=== PATIENT | male | born 1975 | race Caucasian/White ===

== ENCOUNTER 2016-11-17 02:20 | Emergency (ER) | payer OTHER ==
[~2016-11-17 02:20] MED LIST: PERCOCET1 TA1 PO; VISTARIL50 MG PO
--- NOTE | 2016-11-17 04:29 | ED ORDER SUMMARY ---
..... Patient: JANNETTE RIZVI OrderSheet [facility] VisitID: [id number] [place] [address] 41y, M Registration Date/Time: 11/17/2016 ORDER SHEET Weight: 108.8 kg (stated) Allergies: No Known Drug Allergy GENERAL ORDERS: Culture, Wound Deep (Groin) (pus) Urgent (03:00 11/17/2016 Brandon Mcdaniel) (Ack 3:01 PWeiler ER Tech1) (4:14 HSoule) CBC w Diff Urgent (03:00 11/17/2016 Brandon Mcdaniel) (Ack 3:01 KRISTIeiler ER Tech1) (3:47 Marita R.N.) CMP Urgent (03:00 11/17/2016 Brandon Mcdaniel) (Ack 3:01 KRISTIeiler ER Tech1) (3:47 Marita R.N.) I&D Tray (03:00 11/17/2016 Brandon Mcdaniel) (Ack 3:01 KRISTIeiler ER Tech1) (3:09 ALawrence ER Tech1) MEDICATION ORDERS: IV FLUIDS: IV NS : initial bolus none -, then 1000 mL/hr (NOW) (02:59 11/17/2016 Brandon Mcdaniel) (Ack 3:06 HSoule) (3:18 HSoule) Dilaudid IV 1 mg (HIGH ALERT MEDICATION, NOW) (03:00 11/17/2016 Brandon Mcdaniel) (Ack 3:06 HSoule) (3:20 HSoule) Dilaudid IV 1 mg (NOW) (03:59 11/17/2016 Marita R.N. verbal order read back to Brandon Mcdaniel) (4:00 Marita R.N.) ORDER SHEET NOTES: [Electronically signed by Lon Alicia Dr. (04:31 11/17/2016)] [Electronically signed by Janice Grey (05:22 11/17/2016)] [Electronically locked/signed by Janice Grey (05:22 11/17/2016)]
--- NOTE | 2016-11-17 04:29 | ED ORDER SUMMARY ---
..... Patient: JANNETTE RIZVI OrderSheet [facility] VisitID: [id number] [place] [address] 41y, M Registration Date/Time: 11/17/2016 ORDER SHEET Weight: 108.8 kg (stated) Allergies: No Known Drug Allergy GENERAL ORDERS: Culture, Wound Deep (Groin) (pus) Urgent (03:00 11/17/2016 Brandon Mcdaniel) (Ack 3:01 PWeiler ER Tech1) (4:14 HSoule) CBC w Diff Urgent (03:00 11/17/2016 Brandon Mcdaniel) (Ack 3:01 KRISTIeiler ER Tech1) (3:47 Marita R.N.) CMP Urgent (03:00 11/17/2016 Brandon Mcdaniel) (Ack 3:01 KRISTIeiler ER Tech1) (3:47 Marita R.N.) I&D Tray (03:00 11/17/2016 Brandon Mcdaniel) (Ack 3:01 KRISTIeiler ER Tech1) (3:09 ALawrence ER Tech1) MEDICATION ORDERS: IV FLUIDS: IV NS : initial bolus none -, then 1000 mL/hr (NOW) (02:59 11/17/2016 Brandon Mcdaniel) (Ack 3:06 HSoule) (3:18 HSoule) Dilaudid IV 1 mg (HIGH ALERT MEDICATION, NOW) (03:00 11/17/2016 Brandon Mcdaniel) (Ack 3:06 HSoule) (3:20 HSoule) Dilaudid IV 1 mg (NOW) (03:59 11/17/2016 Marita R.N. verbal order read back to Brandon Mcdaniel) (4:00 Marita R.N.) ORDER SHEET NOTES: [Electronically signed by Lon Alicia Dr. (04:31 11/17/2016)] [Electronically signed by Janice Grey (05:22 11/17/2016)] [Electronically locked/signed by Janice Grey (05:22 11/17/2016)]
--- NOTE | 2016-11-17 04:29 | ED CLINICAL REPORT ---
Clinical Report - Physicians/Mid Levels [facility] [address] [place] [address] 11/17/2016 2:21 Patient: JANNETTE RIZVI Time Seen: 02:31; initial patient contact. Arrived- By private vehicle. Historian- patient. HISTORY OF PRESENT ILLNESS Chief Complaint: BOIL. This started about 5 days ago and is still present and worsening. It was gradual in onset. It is described as painful. It has been located on the abdomen (Lower central). No cause has been identified. No recent insect bite. Similar symptoms previously: Several times. Recent medical care: Not recently seen/assessed. REVIEW OF SYSTEMS No fever, chills, enlarged lymph nodes, nausea or vomiting. All systems otherwise negative, except as recorded above. PAST HISTORY Abscess. Back Pain. Hypertension. SURGERIES: Bicept tendon. Tibial platoue fx. SOCIAL HISTORY Current every day smoker. Occasional alcohol use. No drug use. ADDITIONAL NOTES The nursing notes have been reviewed. PHYSICAL EXAM Vital Signs: 11/17/2016 02:33 BP: 163/96. HR: 85. RR: 20. O2 saturation: 99%. Temp: 98.5 F. Pain level now: 7/10. Have been reviewed. Hypertensive. Heart rate normal. Respiratory rate normal. Temperature normal. Oxygen saturation normal. Appearance: Alert. Oriented X3. No acute distress. ENT: Pharynx normal. CVS: Normal heart rate and rhythm. Heart sounds normal. Respiratory: No respiratory distress. Breath sounds normal. Skin: Single medium tender indurated area with fluctuance, pointing and cellulitis to the abdomen. Neuro: Oriented X 3. PROGRESS AND PROCEDURES Incision & Drainage of Abscess: Time: 04:27. Per protocol, time-out completed immediately before the procedure. The abscess is located in the abdomen. The risks of the procedure, benefits and alternatives were explained. IV established. O2 administered. Placed on pulse oximeter. Parenteral Dilaudid administered. Local anesthesia provided using 1% lidocaine. Skin cleansed with Shur-Clens. The abscess was incised with a #11 surgical blade. A small amount of pus was drained. Cavity was irrigated with saline and packed with gauze. Sample obtained for cultures. A dressing was applied. Estimated blood loss: 5 mL. Disposition: Discharged home in good and improved condition. Condition: good. CLINICAL IMPRESSION Single deep abscess to the left inguinal region with incision and drainage. INSTRUCTIONS Your Current Medications: CONTINUE TAKING THE FOLLOWING MEDICATIONS: Chantix Oral. Losartan Potassium Oral. Zoloft Oral. Prescription Medications: Hydrocodone/APAP 5mg / 325mg: take 1 orally every 6 hours as needed for pain. Dispense fifteen (15). No refill. Clindamycin 300 mg: take 1 capsule orally every 6 hours for 7 days. No refill. Follow-up: Return to the emergency department in two days for wound check and packing removal. Blood pressure screening was not performed during this visit because the patient has an active diagnosis of hypertension. (Electronically signed by Lon Alicia Dr. 11/17/2016 4:31)
--- NOTE | 2016-11-17 04:29 | ED CLINICAL REPORT ---
Clinical Report - Physicians/Mid Levels [facility] [address] [place] [address] 11/17/2016 2:21 Patient: JANNETTE RIZVI Time Seen: 02:31; initial patient contact. Arrived- By private vehicle. Historian- patient. HISTORY OF PRESENT ILLNESS Chief Complaint: BOIL. This started about 5 days ago and is still present and worsening. It was gradual in onset. It is described as painful. It has been located on the abdomen (Lower central). No cause has been identified. No recent insect bite. Similar symptoms previously: Several times. Recent medical care: Not recently seen/assessed. REVIEW OF SYSTEMS No fever, chills, enlarged lymph nodes, nausea or vomiting. All systems otherwise negative, except as recorded above. PAST HISTORY Abscess. Back Pain. Hypertension. SURGERIES: Bicept tendon. Tibial platoue fx. SOCIAL HISTORY Current every day smoker. Occasional alcohol use. No drug use. ADDITIONAL NOTES The nursing notes have been reviewed. PHYSICAL EXAM Vital Signs: 11/17/2016 02:33 BP: 163/96. HR: 85. RR: 20. O2 saturation: 99%. Temp: 98.5 F. Pain level now: 7/10. Have been reviewed. Hypertensive. Heart rate normal. Respiratory rate normal. Temperature normal. Oxygen saturation normal. Appearance: Alert. Oriented X3. No acute distress. ENT: Pharynx normal. CVS: Normal heart rate and rhythm. Heart sounds normal. Respiratory: No respiratory distress. Breath sounds normal. Skin: Single medium tender indurated area with fluctuance, pointing and cellulitis to the abdomen. Neuro: Oriented X 3. PROGRESS AND PROCEDURES Incision & Drainage of Abscess: Time: 04:27. Per protocol, time-out completed immediately before the procedure. The abscess is located in the abdomen. The risks of the procedure, benefits and alternatives were explained. IV established. O2 administered. Placed on pulse oximeter. Parenteral Dilaudid administered. Local anesthesia provided using 1% lidocaine. Skin cleansed with Shur-Clens. The abscess was incised with a #11 surgical blade. A small amount of pus was drained. Cavity was irrigated with saline and packed with gauze. Sample obtained for cultures. A dressing was applied. Estimated blood loss: 5 mL. Disposition: Discharged home in good and improved condition. Condition: good. CLINICAL IMPRESSION Single deep abscess to the left inguinal region with incision and drainage. INSTRUCTIONS Your Current Medications: CONTINUE TAKING THE FOLLOWING MEDICATIONS: Chantix Oral. Losartan Potassium Oral. Zoloft Oral. Prescription Medications: Hydrocodone/APAP 5mg / 325mg: take 1 orally every 6 hours as needed for pain. Dispense fifteen (15). No refill. Clindamycin 300 mg: take 1 capsule orally every 6 hours for 7 days. No refill. Follow-up: Return to the emergency department in two days for wound check and packing removal. Blood pressure screening was not performed during this visit because the patient has an active diagnosis of hypertension. (Electronically signed by Lon Alicia Dr. 11/17/2016 4:31)
--- NOTE | 2016-11-17 04:29 | ED NURSING NOTES ---
Clinical Report - Nurses [facility] [address] [place] [address] 11/17/2016 2:21 [id number] Triage time 02:Nov 17 2016. Acuity: LEVEL 4. Chief Complaint: BOIL. 02:37 11/17/16. SEPSIS SCREEN: Sepsis Screen: negative. Negative (no infection suspected/documented). EFREN COMA SCORE: [place] Coma Scale: 15- eyes open spontaneously (4); best verbal response- oriented x 4 (5); best motor response- obeys commands (6). --02:37 Matilda, Janice 02:33 11/17/16. BP: 163/96. HR: 85. RR: 20. O2 saturation: 99% on room air. Temp: 98.5 F (oral). Pain level now: 01/29. --02:37 Matilda, Janice. Weight: 108.8 kg stated. Height/Length: 71 inches Per Patient. BMI: 33.5. --02:35 Matilda, Janice. Medications Chantix Oral. --02:34 Matilda, Janice Zoloft Oral. --02:35 Cora Greyh Losartan Potassium Oral. --02:35 Leif Greynah. Medication/allergy information source: the patient. --02:37 MatildaJanice hearn. Allergies No Known Drug Allergy. --02:35 Janice Grey. History Arrived by private vehicle. Historian: patient. Accompanied by family. Primary physician ( physician hitesh). Reported as (Groin). Onset. (5 days). It is described as burning and painful. ( Patient reports a boil/abscess above his penis at the top of his groin area. He reports its been going on five days. He reports history of MRSA. He reports some very scant drainage from the abscess.). PAST MEDICAL HX: Immunizations: up-to-date. SOCIAL HX: Light tobacco smoker (cigarette)- less than 1/2 a pack per day. Occasional alcohol use. No drug use. No infectious disease exposure. ABUSE ASSESSMENT: No report of abuse. FALL RISK ASSESSMENT: Fall risk assessment completed. No fall risk identified. NUTRITIONAL RISK ASSESSMENT: The nutritional risk assessment revealed no deficiencies. FUNCTIONAL ASSESSMENT: Functional assessment: no impairments noted. LEARNING NEEDS ASSESSMENT: The learning needs assessment revealed no barriers. SKIN INTEGRITY ASSESSMENT: Skin integrity risk assessment completed. No skin integrity risk identified. --02:37 Janice Grey. PROBLEMS: Abscess. Back Pain. Hypertension. --02:35 Janice Grey. ADDITIONAL SURGERIES: Bicept tendon. Tibial platoue fx. --02:35 Janice Grey. Interventions ID band on patient. To treatment room. --02:37 Janice Grey. PHYSICAL ASSESSMENT Ambulatory to room. Patient gowned. GENERAL / NEURO / PSYCH: Alert. Appears in pain. Oriented X 4. HEENT: Mucous membranes are pink. RESPIRATORY: Respirations not labored. CVS: Pulses within normal limits. SKIN: Skin is warm and dry. Single skin lesion with erythema, tenderness and increased warmth- Groin. --02:38 Janice Grey. NURSING PROGRESS NOTES 02:39 11/17/16. Patient gowned. Reassurance given to the patient. Two patient identifiers checked. Call light placed in reach. Side rails up x 1. Bed placed in lowest position. Brakes of bed on. Patient ready for evaluation- chart flagged and ED physician notified. --02:39 Janice Grey 03:18 11/17/2016 Site #1 started via IV in the right antecubital space with an 20g angiocath, with aseptic technique and good blood return; one attempt. Blood drawn: rainbow set. Labeled in the presence of the patient and sent to the lab. Saline lock flushed with saline. --03:18 Janice Grey 03:18 11/17/2016 Started bag #1 1000 mL IV Fluids IV NS (Saline); at 10 mL/hr over 1 hour(s) via site #1. Allergies verified and confirmed 5 rights. IV patency established. IV site checked: no pain, redness, or swelling. IV flushed thoroughly pre- and post-medication administration. --03:18 Janice Grey 03:20 11/17/2016 Dilaudid (HYDROmorphone HCl PF) IVP 1 mg given over 1 minute(s) via site #1. Allergies verified, confirmed 5 rights and sedative warning given to the patient. IV patency established. IV site checked: no pain, redness, or swelling. IV flushed thoroughly pre- and post-medication administration. IVP given by RN. --03:20 Janice Grey Pulse oximeter and NIBP monitor placed on patient; monitor alarms on. --03:20 Janice Grey 03:57 11/17/2016 Dilaudid (HYDROmorphone HCl PF) IVP 1 mg given over 2 minute(s) via site #1. Allergies verified, confirmed 5 rights and sedative warning given to the patient. IV patency established. IV site checked: no pain, redness, or swelling. IV flushed thoroughly pre- and post-medication administration. IVP given by RN. --03:59 Khurram Marcial R.N. 04:00. I & D: Incision and Drainage of abscess performed by ED physician. Assisted by two techs. Preparation: Incision and Drainage tray set up. Procedure; a small amount of pus was drained. Cavity was packed with gauze. Sample obtained for cultures. --04:15 Luisa Joy, ER Tech1 04:40 11/17/2016 IV Fluids IV NS Discontinued: bag #1 completed upon discharge. Total amount infused: 1000 mL. IV patency established. IV site checked: no pain, redness, or swelling. IV flushed thoroughly. --04:45 Janice Grey. DISPOSITION / DISCHARGE Condition at departure: stable. The goals identified in the patient's plan of care were met. No learning barriers present. Discharge instructions provided and reviewed with the patient. Reviewed warnings (Do not drive while on sedative medications). Reviewed medication(s) side effects, precautions, dosing and course information. Prescription(s) given to the patient. Reviewed wound care instructions. Reviewed need for increased fluid intake. Patient and floor associate verbalized understanding. Written instructions provided in [place]. ( Follow up with PCP in three days. Return if symptoms worsen. Watch for worsening signs of infection including fever. Patient verbalized understanding and has no questions at this time.). The patient was discharged by the physician. He was discharged home and accompanied by floor associate. He left the Emergency Department ambulatory and via private vehicle. [employer] Middleware Architect driving. FALL RISK ASSESSMENT: Fall risk assessment completed. No fall risk identified. --04:45 Janice Grey 04:43 11/17/16. BP: 137/80. HR: 84. RR: 20. O2 saturation: 98% on room air. Temp: 98 F (oral). Pain level now: 12/30. --04:45 Janice Grey 04:40 11/17/2016 Site #1 removed upon discharge. Catheter intact. Bandaid applied. --04:45 Janice Grey. Locked/Released at 11/17/2016 5:22 by Janice Grey,
--- NOTE | 2016-11-17 04:29 | ED NURSING NOTES ---
Clinical Report - Nurses [facility] [address] [place] [address] 11/17/2016 2:21 [id number] Triage time 02:Nov 17 2016. Acuity: LEVEL 4. Chief Complaint: BOIL. 02:37 11/17/16. SEPSIS SCREEN: Sepsis Screen: negative. Negative (no infection suspected/documented). EFREN COMA SCORE: [place] Coma Scale: 15- eyes open spontaneously (4); best verbal response- oriented x 4 (5); best motor response- obeys commands (6). --02:37 Matilda, Jnaice 02:33 11/17/16. BP: 163/96. HR: 85. RR: 20. O2 saturation: 99% on room air. Temp: 98.5 F (oral). Pain level now: 01/29. --02:37 Matilda, Janice. Weight: 108.8 kg stated. Height/Length: 71 inches Per Patient. BMI: 33.5. --02:35 Matilda, Janice. Medications Chantix Oral. --02:34 Matilda, Janice Zoloft Oral. --02:35 Cora Greyh Losartan Potassium Oral. --02:35 Leif Greynah. Medication/allergy information source: the patient. --02:37 MatildaJanice hearn. Allergies No Known Drug Allergy. --02:35 Janice Grey. History Arrived by private vehicle. Historian: patient. Accompanied by family. Primary physician ( physician hitesh). Reported as (Groin). Onset. (5 days). It is described as burning and painful. ( Patient reports a boil/abscess above his penis at the top of his groin area. He reports its been going on five days. He reports history of MRSA. He reports some very scant drainage from the abscess.). PAST MEDICAL HX: Immunizations: up-to-date. SOCIAL HX: Light tobacco smoker (cigarette)- less than 1/2 a pack per day. Occasional alcohol use. No drug use. No infectious disease exposure. ABUSE ASSESSMENT: No report of abuse. FALL RISK ASSESSMENT: Fall risk assessment completed. No fall risk identified. NUTRITIONAL RISK ASSESSMENT: The nutritional risk assessment revealed no deficiencies. FUNCTIONAL ASSESSMENT: Functional assessment: no impairments noted. LEARNING NEEDS ASSESSMENT: The learning needs assessment revealed no barriers. SKIN INTEGRITY ASSESSMENT: Skin integrity risk assessment completed. No skin integrity risk identified. --02:37 Janice Grey. PROBLEMS: Abscess. Back Pain. Hypertension. --02:35 Janice Grey. ADDITIONAL SURGERIES: Bicept tendon. Tibial platoue fx. --02:35 Janice Grey. Interventions ID band on patient. To treatment room. --02:37 Janice Grey. PHYSICAL ASSESSMENT Ambulatory to room. Patient gowned. GENERAL / NEURO / PSYCH: Alert. Appears in pain. Oriented X 4. HEENT: Mucous membranes are pink. RESPIRATORY: Respirations not labored. CVS: Pulses within normal limits. SKIN: Skin is warm and dry. Single skin lesion with erythema, tenderness and increased warmth- Groin. --02:38 Janice Grey. NURSING PROGRESS NOTES 02:39 11/17/16. Patient gowned. Reassurance given to the patient. Two patient identifiers checked. Call light placed in reach. Side rails up x 1. Bed placed in lowest position. Brakes of bed on. Patient ready for evaluation- chart flagged and ED physician notified. --02:39 Janice Grey 03:18 11/17/2016 Site #1 started via IV in the right antecubital space with an 20g angiocath, with aseptic technique and good blood return; one attempt. Blood drawn: rainbow set. Labeled in the presence of the patient and sent to the lab. Saline lock flushed with saline. --03:18 Janice Grey 03:18 11/17/2016 Started bag #1 1000 mL IV Fluids IV NS (Saline); at 10 mL/hr over 1 hour(s) via site #1. Allergies verified and confirmed 5 rights. IV patency established. IV site checked: no pain, redness, or swelling. IV flushed thoroughly pre- and post-medication administration. --03:18 Janice Grey 03:20 11/17/2016 Dilaudid (HYDROmorphone HCl PF) IVP 1 mg given over 1 minute(s) via site #1. Allergies verified, confirmed 5 rights and sedative warning given to the patient. IV patency established. IV site checked: no pain, redness, or swelling. IV flushed thoroughly pre- and post-medication administration. IVP given by RN. --03:20 Janice Grey Pulse oximeter and NIBP monitor placed on patient; monitor alarms on. --03:20 Janice Grey 03:57 11/17/2016 Dilaudid (HYDROmorphone HCl PF) IVP 1 mg given over 2 minute(s) via site #1. Allergies verified, confirmed 5 rights and sedative warning given to the patient. IV patency established. IV site checked: no pain, redness, or swelling. IV flushed thoroughly pre- and post-medication administration. IVP given by RN. --03:59 Khurram Marcial R.N. 04:00. I & D: Incision and Drainage of abscess performed by ED physician. Assisted by two techs. Preparation: Incision and Drainage tray set up. Procedure; a small amount of pus was drained. Cavity was packed with gauze. Sample obtained for cultures. --04:15 Luisa Joy, ER Tech1 04:40 11/17/2016 IV Fluids IV NS Discontinued: bag #1 completed upon discharge. Total amount infused: 1000 mL. IV patency established. IV site checked: no pain, redness, or swelling. IV flushed thoroughly. --04:45 Janice Grey. DISPOSITION / DISCHARGE Condition at departure: stable. The goals identified in the patient's plan of care were met. No learning barriers present. Discharge instructions provided and reviewed with the patient. Reviewed warnings (Do not drive while on sedative medications). Reviewed medication(s) side effects, precautions, dosing and course information. Prescription(s) given to the patient. Reviewed wound care instructions. Reviewed need for increased fluid intake. Patient and tool analyst verbalized understanding. Written instructions provided in [place]. ( Follow up with PCP in three days. Return if symptoms worsen. Watch for worsening signs of infection including fever. Patient verbalized understanding and has no questions at this time.). The patient was discharged by the physician. He was discharged home and accompanied by tool analyst. He left the Emergency Department ambulatory and via private vehicle. Blaster Helper driving. FALL RISK ASSESSMENT: Fall risk assessment completed. No fall risk identified. --04:45 Janice Grey 04:43 11/17/16. BP: 137/80. HR: 84. RR: 20. O2 saturation: 98% on room air. Temp: 98 F (oral). Pain level now: 12/30. --04:45 Janice Grey 04:40 11/17/2016 Site #1 removed upon discharge. Catheter intact. Bandaid applied. --04:45 Janice Grey. Locked/Released at 11/17/2016 5:22 by Janice Grey,
--- NOTE | 2016-11-17 05:23 | ED MAR SUMMARY ---
..... Medication Administration Record [facility] [address] [place] [address] Patient: JANNETTE RIZVI Visit ID: [id number] 41y, M Weight: 108.8 kg Height/Length: 71 in BMI: 33.5 ALLERGIES: No Known Drug Allergy Start 03:18 11/17/2016 Janice Grey,, Stop 04:40 11/17/2016 Janice Grey, Medication Administered: IV NS (SALINE), Dose: IV Fluids over 1 hour(s), Rate: 10 mL/hr, Dispensed: 1000 mL bag, Site: #1 right AC. Medication Ordered: IV NS : initial bolus none -, then 1000 mL/hr (NOW). Given 03:20 11/17/2016 Janice Grey, Medication Administered: DILAUDID [IVP] (HYDROMORPHONE HCL PF), Dose: 1 mg IVP over 1 minute(s), Site: #1 right AC. Medication Ordered: Dilaudid IV 1 mg (HIGH ALERT MEDICATION, NOW). Given 03:57 11/17/2016 Khurram Marcial R.N. Medication Administered: DILAUDID [IVP] (HYDROMORPHONE HCL PF), Dose: 1 mg IVP over 2 minute(s), Site: #1 right AC. Medication Ordered: Dilaudid IV 1 mg (NOW).
--- NOTE | 2016-11-17 05:23 | ED MAR SUMMARY ---
..... Medication Administration Record [facility] [address] [place] [address] Patient: JANNETTE RIZVI Visit ID: [id number] 41y, M Weight: 108.8 kg Height/Length: 71 in BMI: 33.5 ALLERGIES: No Known Drug Allergy Start 03:18 11/17/2016 Janice Grey,, Stop 04:40 11/17/2016 Janice Grey, Medication Administered: IV NS (SALINE), Dose: IV Fluids over 1 hour(s), Rate: 10 mL/hr, Dispensed: 1000 mL bag, Site: #1 right AC. Medication Ordered: IV NS : initial bolus none -, then 1000 mL/hr (NOW). Given 03:20 11/17/2016 Janice Grey, Medication Administered: DILAUDID [IVP] (HYDROMORPHONE HCL PF), Dose: 1 mg IVP over 1 minute(s), Site: #1 right AC. Medication Ordered: Dilaudid IV 1 mg (HIGH ALERT MEDICATION, NOW). Given 03:57 11/17/2016 Khurarm Marcial R.N. Medication Administered: DILAUDID [IVP] (HYDROMORPHONE HCL PF), Dose: 1 mg IVP over 2 minute(s), Site: #1 right AC. Medication Ordered: Dilaudid IV 1 mg (NOW).
--- NOTE | 2016-11-17 05:23 | ED MED RECONCILIATION SUMMARY ---
Patient: JANNETTE RIZVI Medication Reconciliation Report [facility] VisitID: [id number] [address] [place] [address] 41y, M Registration Date/Time: 11/17/2016 Weight: 108.8 kg Height/Length: 71 in. BMI: 33.5 ALLERGIES: No Known Drug Allergy The patient's Home Medications are listed below: CONTINUE TAKING THE FOLLOWING MEDICATIONS: Chantix Oral Losartan Potassium Oral Zoloft Oral The source(s) of the original Home Medication information: patient The following Medications were given to the patient in the Emergency Department: IV NS IV Fluids bolus 0, then 10 mL/hr, administered: 11/17/2016 3:18:00 AM Dilaudid [IVP] IVP 1 mg, administered: 11/17/2016 3:20:00 AM Dilaudid [IVP] IVP 1 mg, administered: 11/17/2016 3:57:00 AM The following Medications were prescribed to the patient: Hydrocodone/APAP 5mg / 325mg: take 1 orally every 6 hours as needed for pain. Dispense fifteen (15). No refill. -- Lon Alicia Dr. Clindamycin 300 mg: take 1 capsule orally every 6 hours for 7 days. No refill. -- Lon Alicia Dr.
--- NOTE | 2016-11-17 05:23 | ED DISCHARGE INSTRUCTIONS ---
Patient: JANNETTE RIZVI General Instructions [facility] VisitID: [id number] [place] [address] 41y, M Registration Date/Time: 11/17/2016 Single deep abscess to the left inguinal region with incision and drainage. INSTRUCTIONS Your Current Medications: CONTINUE TAKING THE FOLLOWING MEDICATIONS: Chantix Oral. Losartan Potassium Oral. Zoloft Oral. Prescription Medications: Hydrocodone/APAP 5mg / 325mg: take 1 orally every 6 hours as needed for pain. Dispense fifteen (15). No refill. Clindamycin 300 mg: take 1 capsule orally every 6 hours for 7 days. No refill. Follow-up: Return to the emergency department in two days for wound check and packing removal. Blood pressure screening was not performed during this visit because the patient has an active diagnosis of hypertension. ADDITIONAL INFORMATION Abscess [Incision & Drainage] An abscess (sometimes called a boil) occurs when bacteria get trapped under the skin and begin to grow. Pus forms inside the abscess as the body responds to the bacteria. An abscess can occur with an insect bite, ingrown hair, blocked oil gland, pimple, cyst, or puncture wound. Treatment of your abscess has required an incision to drain the pus. If the abscess pocket was large, a gauze packing may have been inserted. This will need to be removed and possibly replaced on your next visit. Antibiotics are not required in the treatment of a simple abscess, unless the infection is spreading into the skin around the wound (known as cellulitis). Healing of the wound will take about one to two weeks depending on the size of the abscess. Healthy tissue will grow from the bottom and sides of the opening until it seals over. Home Care: The wound may drain for the first two days. Cover the wound with a clean dry dressing. If the dressing becomes soaked with blood or pus, change it. If a gauze packing was placed inside the abscess cavity, you may be advised to remove it yourself. You may do this in the shower. Once the packing is removed, you should wash the area in the shower or bath 3 to 4 times a day, until the skin opening has closed. If you were prescribed antibiotics, take them as directed until they are all gone. You may use acetaminophen (Tylenol) or ibuprofen (Motrin, Advil) to control pain, unless another pain medicine was prescribed. [ NOTE: If you have liver disease or ever had a stomach ulcer, talk with your doctor before using these medicines.] Follow Up with your doctor as advised by our staff. If a gauze packing was inserted in your wound, it should be removed in 1-2 days. Check your wound every day for the signs of worsening infection listed below. Get Prompt Medical Attention if any of the following occur: Increasing redness or swelling Red streaks in the skin leading away from the wound Increasing local pain or swelling Continued pus draining from the wound two days after treatment Fever of 100.4F (38C) or higher, or as directed by your healthcare provider Hydrocodone Bitartrate, Acetaminophen Oral tablet What is this medicine? ACETAMINOPHEN; HYDROCODONE (a set a MARLENI varun fen; bora droe KOE done) is a pain reliever. It is used to treat mild to moderate pain. How should I use this medicine? Take this medicine by mouth. Swallow it with a full glass of water. Follow the directions on the prescription label. If the medicine upsets your stomach, take the medicine with food or milk. Do not take more than you are told to take. Talk to your research manufacturing operator regarding the use of this medicine in children. This medicine is not approved for use in children. What side effects may I notice from receiving this medicine? Side effects that you should report to your doctor or health patient centered care specialist as soon as possible: allergic reactions like skin rash, itching or hives, swelling of the face, lips, or tongue breathing problems confusion feeling faint or lightheaded, falls stomach pain yellowing of the eyes or skin Side effects that usually do not require medical attention (report to your doctor or health patient centered care specialist if they continue or are bothersome): nausea, vomiting stomach upset What may interact with this medicine? alcohol antihistamines isoniazid medicines for depression, anxiety, or psychotic disturbances medicines for sleep muscle relaxants naltrexone narcotic medicines (opiates) for pain phenobarbital ritonavir tramadol What if I miss a dose? If you miss a dose, take it as soon as you can. If it is almost time for your next dose, take only that dose. Do not take double or extra doses. Where should I keep my medicine? Keep out of the reach of children. This medicine can be abused. Keep your medicine in a safe place to protect it from theft. Do not share this medicine with anyone. Selling or giving away this medicine is dangerous and against the law. Store at room temperature between 15 and 30 degrees C (59 and 86 degrees F). Protect from light. Keep container tightly closed. Throw away any unused medicine after the expiration date. Discard unused medicine and used packaging carefully. Pets and children can be harmed if they find used or lost packages. What should I tell my health care provider before I take this medicine? They need to know if you have any of these conditions: brain tumor Crohn's disease, inflammatory bowel disease, or ulcerative colitis drink more than 3 alcohol-containing drinks per day drug abuse or addiction head injury heart or circulation problems kidney disease or problems going to the bathroom liver disease lung disease, asthma, or breathing problems an unusual or allergic reaction to acetaminophen, hydrocodone, other opioid analgesics, other medicines, foods, dyes, or preservatives or trying to get breast-feeding What should I watch for while using this medicine? Tell your doctor or health patient centered care specialist if your pain does not go away, if it gets worse, or if you have new or a different type of pain. You may develop tolerance to the medicine. Tolerance means that you will need a higher dose of the medicine for pain relief. Tolerance is normal and is expected if you take the medicine for a long time. Do not suddenly stop taking your medicine because you may develop a severe reaction. Your body becomes used to the medicine. This does NOT mean you are addicted. Addiction is a behavior related to getting and using a drug for a non-medical reason. If you have pain, you have a medical reason to take pain medicine. Your doctor will tell you how much medicine to take. If your doctor wants you to stop the medicine, the dose will be slowly lowered over time to avoid any side effects. You may get drowsy or dizzy when you first start taking the medicine or change doses. Do not drive, use machinery, or do anything that may be dangerous until you know how the medicine affects you. Stand or sit up slowly. There are different types of narcotic medicines (opiates) for pain. If you take more than one type at the same time, you may have more side effects. Give your health care provider a list of all medicines you use. Your doctor will tell you how much medicine to take. Do not take more medicine than directed. Call emergency for help if you have problems breathing. The medicine will cause constipation. Try to have a bowel movement at least every 2 to 3 days. If you do not have a bowel movement for 3 days, call your doctor or health patient centered care specialist. Too much acetaminophen can be very dangerous. Do not take Tylenol (acetaminophen) or medicines that contain acetaminophen with this medicine. Many non-prescription medicines contain acetaminophen. Always read the labels carefully. Clindamycin Hydrochloride Oral capsule What is this medicine? CLINDAMYCIN (VIVIAN Paige) is a lincosamide antibiotic. It is used to treat certain kinds of bacterial infections. It will not work for colds, flu, or other viral infections. How should I use this medicine? Take this medicine by mouth with a full glass of water. Follow the directions on the prescription label. You can take this medicine with food or on an empty stomach. If the medicine upsets your stomach, take it with food. Take your medicine at regular intervals. Do not take your medicine more often than directed. Take all of your medicine as directed even if you think your are better. Do not skip doses or stop your medicine early. Talk to your research manufacturing operator regarding the use of this medicine in children. Special care may be needed. What side effects may I notice from receiving this medicine? Side effects that you should report to your doctor or health patient centered care specialist as soon as possible: allergic reactions like skin rash, itching or hives, swelling of the face, lips, or tongue dark urine pain on swallowing redness, blistering, peeling or loosening of the skin, including inside the mouth unusual bleeding or bruising unusually weak or tired yellowing of eyes or skin Side effects that usually do not require medical attention (report to your doctor or health patient centered care specialist if they continue or are bothersome): diarrhea itching in the rectal or genital area joint pain nausea, vomiting stomach pain What may interact with this medicine? chloramphenicol erythromycin kaolin products What if I miss a dose? If you miss a dose, take it as soon as you can. If it is almost time for your next dose, take only that dose. Do not take double or extra doses. Where should I keep my medicine? Keep out of the reach of children. Store at room temperature between 20 and 25 degrees C (68 and 77 degrees F). Throw away any unused medicine after the expiration date. What should I tell my health care provider before I take this medicine? They need to know if you have any of these conditions: kidney disease liver disease stomach problems like colitis an unusual or allergic reaction to clindamycin, lincomycin, or other medicines, foods, dyes like tartrazine or preservatives or trying to get breast-feeding What should I watch for while using this medicine? Tell your doctor or healthcare professional if your symptoms do not start to get better or if they get worse. Do not treat diarrhea with over the counter products. Contact your doctor if you have diarrhea that lasts more than 2 days or if it is severe and watery. You have been given the following additional information: Abscess, Incision And Drainage Hydrocodone Bitartrate, Acetaminophen Oral tablet Clindamycin Hydrochloride Oral capsule (Electronically signed by Lon Alicia Dr. 11/17/2016 4:31)
--- NOTE | 2016-11-17 05:23 | ED MED RECONCILIATION SUMMARY ---
Patient: JANNETTE RIZVI Medication Reconciliation Report [facility] VisitID: [id number] [address] [place] [address] 41y, M Registration Date/Time: 11/17/2016 Weight: 108.8 kg Height/Length: 71 in. BMI: 33.5 ALLERGIES: No Known Drug Allergy The patient's Home Medications are listed below: CONTINUE TAKING THE FOLLOWING MEDICATIONS: Chantix Oral Losartan Potassium Oral Zoloft Oral The source(s) of the original Home Medication information: patient The following Medications were given to the patient in the Emergency Department: IV NS IV Fluids bolus 0, then 10 mL/hr, administered: 11/17/2016 3:18:00 AM Dilaudid [IVP] IVP 1 mg, administered: 11/17/2016 3:20:00 AM Dilaudid [IVP] IVP 1 mg, administered: 11/17/2016 3:57:00 AM The following Medications were prescribed to the patient: Hydrocodone/APAP 5mg / 325mg: take 1 orally every 6 hours as needed for pain. Dispense fifteen (15). No refill. -- Lon Alicia Dr. Clindamycin 300 mg: take 1 capsule orally every 6 hours for 7 days. No refill. -- Lon Alicia Dr.
== END 2016-11-17 04:45 | disposition home or self-care (01) ==
LOC: ED SRH 02:20
PROC: 0H97XZZ Drainage of Abdomen Skin, External Approach (ICD-10-PCS; principal; 2016-11-17)
DX: L02.214 Cutaneous abscess of groin (principal); I10 Essential (primary) hypertension; Z79.899 Other long term (current) drug therapy
CPT/HCPCS: 90070; 90100; 90131; 90309; 90470; 91672; 95059

== ENCOUNTER 2016-11-19 19:59 | Emergency (ER) | payer OTHER ==
--- NOTE | 2016-11-19 20:45 | ED NURSING NOTES ---
Clinical Report - Nurses [facility] [address] [place] [address] 11/19/2016 20:00 [id number] Triage time 20:03. Acuity: LEVEL 4. Chief Complaint: abcess recheck. Alert. --20:08 Juventino Santos R.N. 20:03 11/19/16. BP: 159/85. HR: 90. RR: 24 (regular and unlabored). O2 saturation: 100% on room air. Temp: 98.1 F (oral). Pain level now: 12/30. --20:08 Juventino Santos R.N. Weight: 108.8 kg stated. Height/Length: 71 inches Per Patient. BMI: 33.5. --20:06 Juventino Santos R.N. Medications Chantix Oral. Losartan Potassium Oral. Zoloft Oral. --20:05 Juventino Santos R.N. Allergies No Known Drug Allergy. --20:05 Juventino Santos R.N. History Arrived by private vehicle. Historian: patient. Unaccompanied. Reported as located on the abdomen. ( pt was here two days ago for abdominal abscess, returned today for a recheck). SOCIAL HX: Smoker- current status unknown (cigarette). Occasional alcohol use. History of drug use: marijuana. ( denies HI/SI). SELF HARM ASSESSMENT: A self harm assessment was performed. The patient answered "no" to the question "Do you have thoughts of harming or killing yourself?" and "Are you here because you tried to hurt yourself?". FALL RISK ASSESSMENT: Fall risk assessment completed. No fall risk identified. NUTRITIONAL RISK ASSESSMENT: The nutritional risk assessment revealed no deficiencies. FUNCTIONAL ASSESSMENT: Functional assessment: no impairments noted. LEARNING NEEDS ASSESSMENT: The learning needs assessment revealed no barriers. --20:08 Juventino Santos R.N. PROBLEMS: Abscess. Back Pain. Hypertension. --20:05 Juventino Santos R.N. MRSA Infection. --20:10 Juventino Santos R.N. ADDITIONAL SURGERIES: Bicept tendon. Tibial platoue fx. --20:05 Juventino Santos R.N. Interventions ID band on patient. To treatment room. --20:08 Juventino Santos R.N. PHYSICAL ASSESSMENT Ambulatory to room. ( Patient has a abscess site that appears to have been incised and drained, is currently covered with 4x4 guaze). GENERAL / NEURO / PSYCH: Alert. Appears anxious. Oriented X 4. HEENT: Mucous membranes are pink. SKIN: Skin is warm and dry. Skin not intact. --20:10 Juventino Santos R.N. NURSING PROGRESS NOTES Patient gowned. Reassurance given. Two patient identifiers checked. Call light placed in reach. Side rails up x 1. Bed placed in lowest position. Brakes of bed on. Patient ready for evaluation- chart flagged. Patient waiting for evaluation. --20:08 Juventino Santos R.N. DISPOSITION / DISCHARGE Departure time: 20:52. Condition at departure: stable. No learning barriers present. Discharge instructions provided and reviewed with the patient. Reviewed warnings. Treatments reviewed. Reviewed referrals. Patient verbalized understanding. Written instructions provided in Vietnamese. The patient was discharged home and unaccompanied at time of discharge. He left the Emergency Department ambulatory and via private vehicle. Driving (unknown). --20:52 Juventino Santos R.N. 20:03 11/19/16. BP: 159/85. HR: 90. RR: 24 (regular and unlabored). O2 saturation: 100% on room air. Temp: 98.1 F (oral). Pain level now: 12/30. --20:52 Juventino Santos R.N. The patient left the Emergency Department via (unknown). --20:53 Juventino Santos R.N. Locked/Released at 11/19/2016 20:53 by Juventino Santos R.N.
--- NOTE | 2016-11-19 20:45 | ED NURSING NOTES ---
Clinical Report - Nurses [facility] [address] [place] [address] 11/19/2016 20:00 [id number] Triage time 20:03. Acuity: LEVEL 4. Chief Complaint: abcess recheck. Alert. --20:08 Juventino Santos R.N. 20:03 11/19/16. BP: 159/85. HR: 90. RR: 24 (regular and unlabored). O2 saturation: 100% on room air. Temp: 98.1 F (oral). Pain level now: 12/30. --20:08 Juventino Santos R.N. Weight: 108.8 kg stated. Height/Length: 71 inches Per Patient. BMI: 33.5. --20:06 Juventino Santos R.N. Medications Chantix Oral. Losartan Potassium Oral. Zoloft Oral. --20:05 Juventino Santos R.N. Allergies No Known Drug Allergy. --20:05 Juventino Santos R.N. History Arrived by private vehicle. Historian: patient. Unaccompanied. Reported as located on the abdomen. ( pt was here two days ago for abdominal abscess, returned today for a recheck). SOCIAL HX: Smoker- current status unknown (cigarette). Occasional alcohol use. History of drug use: marijuana. ( denies HI/SI). SELF HARM ASSESSMENT: A self harm assessment was performed. The patient answered "no" to the question "Do you have thoughts of harming or killing yourself?" and "Are you here because you tried to hurt yourself?". FALL RISK ASSESSMENT: Fall risk assessment completed. No fall risk identified. NUTRITIONAL RISK ASSESSMENT: The nutritional risk assessment revealed no deficiencies. FUNCTIONAL ASSESSMENT: Functional assessment: no impairments noted. LEARNING NEEDS ASSESSMENT: The learning needs assessment revealed no barriers. --20:08 Juventino Santos R.N. PROBLEMS: Abscess. Back Pain. Hypertension. --20:05 Juventino Santos R.N. MRSA Infection. --20:10 Juventino Santos R.N. ADDITIONAL SURGERIES: Bicept tendon. Tibial platoue fx. --20:05 Juventino Santos R.N. Interventions ID band on patient. To treatment room. --20:08 Juventino Santos R.N. PHYSICAL ASSESSMENT Ambulatory to room. ( Patient has a abscess site that appears to have been incised and drained, is currently covered with 4x4 guaze). GENERAL / NEURO / PSYCH: Alert. Appears anxious. Oriented X 4. HEENT: Mucous membranes are pink. SKIN: Skin is warm and dry. Skin not intact. --20:10 Juventino Santos R.N. NURSING PROGRESS NOTES Patient gowned. Reassurance given. Two patient identifiers checked. Call light placed in reach. Side rails up x 1. Bed placed in lowest position. Brakes of bed on. Patient ready for evaluation- chart flagged. Patient waiting for evaluation. --20:08 Juventino Santos R.N. DISPOSITION / DISCHARGE Departure time: 20:52. Condition at departure: stable. No learning barriers present. Discharge instructions provided and reviewed with the patient. Reviewed warnings. Treatments reviewed. Reviewed referrals. Patient verbalized understanding. Written instructions provided in Maori. The patient was discharged home and unaccompanied at time of discharge. He left the Emergency Department ambulatory and via private vehicle. Driving (unknown). --20:52 Juventino Santos R.N. 20:03 11/19/16. BP: 159/85. HR: 90. RR: 24 (regular and unlabored). O2 saturation: 100% on room air. Temp: 98.1 F (oral). Pain level now: 12/30. --20:52 Juvnetino Santos R.N. The patient left the Emergency Department via (unknown). --20:53 Juventino Santos R.N. Locked/Released at 11/19/2016 20:53 by Juventino Santos R.N.
--- NOTE | 2016-11-19 20:45 | ED CLINICAL REPORT ---
Clinical Report - Physicians/Mid Levels [facility] [address] [place] [address] 11/19/2016 20:00 Patient: JANNETTE RIZVI Time Seen: 20:01. Arrived- By private vehicle. Historian- patient. HISTORY OF PRESENT ILLNESS Chief Complaint: (abscess recheck). This started about 4 days ago; abscess was I&D'd 2 days ago and is still present but is improving. It is described as mildly painful. It has been located on the abdomen. No cause has been identified. (Patient is here for packing change.). Similar symptoms previously: Recent medical care: The patient was seen recently at this facility in the emergency department. REVIEW OF SYSTEMS No fever, chills, sore throat, cough or difficulty breathing. No hoarseness, lump in throat, enlarged lymph nodes, headache or eye irritation. No chest pain, abdominal pain, nausea, diarrhea or difficulty with urination. No joint pain or vomiting. All systems otherwise negative, except as recorded above. PAST HISTORY Problems: MRSA Infection. Back Pain. Hypertension. Additional Surgeries: Bicept tendon. Tibial platoue fx. Medications: Chantix Oral. Losartan Potassium Oral. Zoloft Oral. Allergies: No Known Drug Allergy. SOCIAL HISTORY Smoker- current status unknown. Occasional alcohol use. History of drug use: marijuana. ADDITIONAL NOTES The nursing notes have been reviewed. PHYSICAL EXAM Vital Signs: 11/19/2016 20:03 BP: 159/85. HR: 90. RR: 24. O2 saturation: 100%. Temp: 98.1 F. Pain level now: 6/10. Have been reviewed. Appearance: Alert. Oriented X3. No acute distress. Eyes: Pupils equal, round and reactive to light. ENT: Nose normal. Neck: Neck supple. Respiratory: No respiratory distress. Abdomen: Nontender. Skin: Skin warm and dry. Normal skin color. No rash. Normal skin turgor. Single small abscess to the abdomen (No drainage; packing is in place; no surrounding erythema). No drainage or cellulitis. Extremities: Normal external inspection. Neuro: (ggrossly normal.). LABS, X-RAYS, AND EKG Pulse Oximetry: 11/19/2016 20:03 O2 saturation: 100%. (FIO2 - room air). Interpretation: normal. PROGRESS AND PROCEDURES Course of Care: I did remove the packing from the patient's wound. No purulent drainage was expressible from the cavity, and the cavity was irrigated with normal saline. I did replace the packingfor the patient. There is no associated cellulitis but the abscess and the patient has reported improvement and as such I did sexual abuse counsellor the patient to continue to take his antibiotics as directed. Patient counseled in person regarding the patient's stable condition, diagnosis and need for follow-up. Concerns were addressed. Old medical records reviewed. Disposition: Discharged. Condition: stable. CLINICAL IMPRESSION Wound check. INSTRUCTIONS (You should continue the antibiotics until they are gone, and follow up in 2 days to have the packing removed.). Warnings: GENERAL WARNINGS: Return or contact your physician immediately if your condition worsens or changes unexpectedly, if not improving as expected, or if other problems arise. Your Current Medications: CONTINUE TAKING THE FOLLOWING MEDICATIONS: Chantix Oral. Losartan Potassium Oral. Zoloft Oral. Follow-up: Follow up with your doctor as needed. Understanding of the discharge instructions verbalized by patient. (Electronically signed by Ximena Finney MD 11/27/2016 2:36)
--- NOTE | 2016-11-19 20:45 | ED CLINICAL REPORT ---
Clinical Report - Physicians/Mid Levels [facility] [address] [place] [address] 11/19/2016 20:00 Patient: JANNETTE RIZVI Time Seen: 20:01. Arrived- By private vehicle. Historian- patient. HISTORY OF PRESENT ILLNESS Chief Complaint: (abscess recheck). This started about 4 days ago; abscess was I&D'd 2 days ago and is still present but is improving. It is described as mildly painful. It has been located on the abdomen. No cause has been identified. (Patient is here for packing change.). Similar symptoms previously: Recent medical care: The patient was seen recently at this facility in the emergency department. REVIEW OF SYSTEMS No fever, chills, sore throat, cough or difficulty breathing. No hoarseness, lump in throat, enlarged lymph nodes, headache or eye irritation. No chest pain, abdominal pain, nausea, diarrhea or difficulty with urination. No joint pain or vomiting. All systems otherwise negative, except as recorded above. PAST HISTORY Problems: MRSA Infection. Back Pain. Hypertension. Additional Surgeries: Bicept tendon. Tibial platoue fx. Medications: Chantix Oral. Losartan Potassium Oral. Zoloft Oral. Allergies: No Known Drug Allergy. SOCIAL HISTORY Smoker- current status unknown. Occasional alcohol use. History of drug use: marijuana. ADDITIONAL NOTES The nursing notes have been reviewed. PHYSICAL EXAM Vital Signs: 11/19/2016 20:03 BP: 159/85. HR: 90. RR: 24. O2 saturation: 100%. Temp: 98.1 F. Pain level now: 6/10. Have been reviewed. Appearance: Alert. Oriented X3. No acute distress. Eyes: Pupils equal, round and reactive to light. ENT: Nose normal. Neck: Neck supple. Respiratory: No respiratory distress. Abdomen: Nontender. Skin: Skin warm and dry. Normal skin color. No rash. Normal skin turgor. Single small abscess to the abdomen (No drainage; packing is in place; no surrounding erythema). No drainage or cellulitis. Extremities: Normal external inspection. Neuro: (ggrossly normal.). LABS, X-RAYS, AND EKG Pulse Oximetry: 11/19/2016 20:03 O2 saturation: 100%. (FIO2 - room air). Interpretation: normal. PROGRESS AND PROCEDURES Course of Care: I did remove the packing from the patient's wound. No purulent drainage was expressible from the cavity, and the cavity was irrigated with normal saline. I did replace the packingfor the patient. There is no associated cellulitis but the abscess and the patient has reported improvement and as such I did student financial services counselor the patient to continue to take his antibiotics as directed. Patient counseled in person regarding the patient's stable condition, diagnosis and need for follow-up. Concerns were addressed. Old medical records reviewed. Disposition: Discharged. Condition: stable. CLINICAL IMPRESSION Wound check. INSTRUCTIONS (You should continue the antibiotics until they are gone, and follow up in 2 days to have the packing removed.). Warnings: GENERAL WARNINGS: Return or contact your physician immediately if your condition worsens or changes unexpectedly, if not improving as expected, or if other problems arise. Your Current Medications: CONTINUE TAKING THE FOLLOWING MEDICATIONS: Chantix Oral. Losartan Potassium Oral. Zoloft Oral. Follow-up: Follow up with your doctor as needed. Understanding of the discharge instructions verbalized by patient. (Electronically signed by Ximena Finney MD 11/27/2016 2:36)
--- NOTE | 2016-11-27 02:36 | ED MAR SUMMARY ---
..... Medication Administration Record [facility] [address] [place], [place] [id number] Patient: JANNETTE RIZVI Visit ID: [id number] 41y, M Weight: 108.8 kg Height/Length: 71 in BMI: 33.5 ALLERGIES: No Known Drug Allergy
--- NOTE | 2016-11-27 02:36 | ED DISCHARGE INSTRUCTIONS ---
Patient: JANNETTE RIZVI General Instructions [facility] VisitID: [id number] [address] [place] [address] 41y, M Registration Date/Time: 11/19/2016 Wound check. INSTRUCTIONS (You should continue the antibiotics until they are gone, and follow up in 2 days to have the packing removed.). Warnings: GENERAL WARNINGS: Return or contact your physician immediately if your condition worsens or changes unexpectedly, if not improving as expected, or if other problems arise. Your Current Medications: CONTINUE TAKING THE FOLLOWING MEDICATIONS: Chantix Oral. Losartan Potassium Oral. Zoloft Oral. Follow-up: Follow up with your doctor as needed. Understanding of the discharge instructions verbalized by patient. (Electronically signed by Ximena Finney MD 11/27/2016 2:36)
--- NOTE | 2016-11-27 02:36 | ED MED RECONCILIATION SUMMARY ---
Patient: JANNETTE RIZVI Medication Reconciliation Report [facility] VisitID: [id number] [address] [place] [address] 41y, M Registration Date/Time: 11/19/2016 Weight: 108.8 kg Height/Length: 71 in. BMI: 33.5 ALLERGIES: No Known Drug Allergy The patient's Home Medications are listed below: CONTINUE TAKING THE FOLLOWING MEDICATIONS: Chantix Oral Losartan Potassium Oral Zoloft Oral The source(s) of the original Home Medication information: Not obtained. The following Medications were given to the patient in the Emergency Department: None. The following Medications were prescribed to the patient: None.
--- NOTE | 2016-11-27 02:36 | ED MAR SUMMARY ---
..... Medication Administration Record [facility] [address] [place], [place] [id number] Patient: JANNETTE RIZVI Visit ID: [id number] 41y, M Weight: 108.8 kg Height/Length: 71 in BMI: 33.5 ALLERGIES: No Known Drug Allergy
--- NOTE | 2016-11-27 02:36 | ED MED RECONCILIATION SUMMARY ---
Patient: JANNETTE RIZVI Medication Reconciliation Report [facility] VisitID: [id number] [address] [place] [address] 41y, M Registration Date/Time: 11/19/2016 Weight: 108.8 kg Height/Length: 71 in. BMI: 33.5 ALLERGIES: No Known Drug Allergy The patient's Home Medications are listed below: CONTINUE TAKING THE FOLLOWING MEDICATIONS: Chantix Oral Losartan Potassium Oral Zoloft Oral The source(s) of the original Home Medication information: Not obtained. The following Medications were given to the patient in the Emergency Department: None. The following Medications were prescribed to the patient: None.
--- NOTE | 2016-11-27 02:36 | ED DISCHARGE INSTRUCTIONS ---
Patient: JANNETTE RIZVI General Instructions [facility] VisitID: [id number] [address] [place] [address] 41y, M Registration Date/Time: 11/19/2016 Wound check. INSTRUCTIONS (You should continue the antibiotics until they are gone, and follow up in 2 days to have the packing removed.). Warnings: GENERAL WARNINGS: Return or contact your physician immediately if your condition worsens or changes unexpectedly, if not improving as expected, or if other problems arise. Your Current Medications: CONTINUE TAKING THE FOLLOWING MEDICATIONS: Chantix Oral. Losartan Potassium Oral. Zoloft Oral. Follow-up: Follow up with your doctor as needed. Understanding of the discharge instructions verbalized by patient. (Electronically signed by Ximena Finney MD 11/27/2016 2:36)
== END 2016-11-19 20:54 | disposition home or self-care (01) ==
LOC: ED SRH 19:59
DX: L02.211 Cutaneous abscess of abdominal wall (principal); Z48.01 Encounter for change or removal of surgical wound dressing

== ENCOUNTER 2017-01-15 15:16 | Emergency (ER) | payer OTHER ==
--- NOTE | 2017-01-15 15:35 | ED NURSING NOTES ---
Clinical Report - Nurses [facility] [address] [place] [address] 01/15/2017 15:17 Patient: JANNETTE RIZVI TRIAGE Triage time 1520. Acuity: LEVEL 4. Chief Complaint: BOIL and TENDER AREA. --15:30 Zofia Galaviz R.N. 15:20 01/15/17. BP: 155/107. HR: 93. RR: 20. O2 saturation: 99%. Temp: 98.2 F. Pain level now: 03/01. --15:30 Zofia Galaviz R.N. Weight: 108.8 kg stated. Height/Length: 71 inches Per Patient. BMI: 33.5. --15:27 Zofia Galaviz R.N. Medications Losartan Potassium Oral (stopped about 2 months ago ). --15:28 Zofia Galaviz R.N. aleve last dose 0800. --15:28 Zofia Galaviz R.N. Allergies No Known Drug Allergy. --15:28 Zofia Galaviz R.N. History Arrived by private vehicle. Historian: patient. Primary physician (flor burr). Reported as (red, swollen area started on nose 3 dyas ago, pt now c/o headache and face pain). It is described as burning and painful. ( has had cellulitis, and MRSA in the past). He has had fever. ( pt c/o headache, neck and shoulder pain, photophobic). SOCIAL HX: Light tobacco smoker (cigarette)- less than 1/2 a pack per day. Occasional alcohol use. History of drug use: marijuana. --15:30 Zofia Galaviz R.N. PROBLEMS: MRSA Infection. Abscess. Back Pain. Hypertension. --15:29 Zofia Galaviz R.N. ADDITIONAL SURGERIES: Bicept tendon. Tibial platoue fx. --15:29 Zofia Galaviz R.N. Interventions ID band on patient. To treatment room. --15:30 Zofia Galaviz R.N. PHYSICAL ASSESSMENT 15:20. Ambulatory to room. GENERAL / NEURO / PSYCH: Alert. Appears in pain. Oriented X 4. RESPIRATORY: Respirations not labored. CVS: Capillary refill less than 2 seconds. GI / : Abdomen nontender. SKIN: Drainage. Skin tenderness present. Swelling present- nose area, left side nares some old open wound. Increased warmth present. Erythema present. --15:31 Zofia Galaviz R.N. NURSING PROGRESS NOTES 15:20. Patient gowned. Head of bed elevated. Reassurance given. Patient identifiers checked. Call light placed in reach. Side rails up. Bed placed in lowest position. Patient ready for evaluation- chart flagged. --15:30 Zofia Galaviz R.N. 15:35 01/15/2017 Bactrim DS (Sulfamethoxazole-TMP DS) PO Tablets 1 tab given. Allergies verified and confirmed 5 rights. --15:45 Zofia Galaviz R.N. DISPOSITION / DISCHARGE 15:40. Condition at departure: unchanged and stable. No learning barriers present. Discharge instructions provided and reviewed with the patient. Reviewed medication(s) (bactrim, vicodin, motrin). Treatments reviewed (warm packs). Reviewed referrals (follow up wit PCP in 2 days). Written instructions provided. The patient was discharged home and unaccompanied at time of discharge. He left the Emergency Department ambulatory and via private vehicle. Patient driving. --15:44 Zofia Galaviz R.N. 15:40 01/15/17. BP: 150/100. HR: 92. RR: 20. O2 saturation: 100%. Temp: deferred. Pain level now: 03/01. --15:44 Zofia Galaviz R.N. Locked/Released at 01/15/2017 15:46 by Zofia Galaviz R.N.
--- NOTE | 2017-01-15 15:35 | ED NURSING NOTES ---
Clinical Report - Nurses [facility] [address] [place] [address] 01/15/2017 15:17 Patient: JANNETTE RIZVI TRIAGE Triage time 1520. Acuity: LEVEL 4. Chief Complaint: BOIL and TENDER AREA. --15:30 Zofia Galaviz R.N. 15:20 01/15/17. BP: 155/107. HR: 93. RR: 20. O2 saturation: 99%. Temp: 98.2 F. Pain level now: 03/01. --15:30 Zofia Galaviz R.N. Weight: 108.8 kg stated. Height/Length: 71 inches Per Patient. BMI: 33.5. --15:27 Zofia Galaviz R.N. Medications Losartan Potassium Oral (stopped about 2 months ago ). --15:28 Zofia Galaviz R.N. aleve last dose 0800. --15:28 Zofia Galaviz R.N. Allergies No Known Drug Allergy. --15:28 Zofia Galaviz R.N. History Arrived by private vehicle. Historian: patient. Primary physician (flor burr). Reported as (red, swollen area started on nose 3 dyas ago, pt now c/o headache and face pain). It is described as burning and painful. ( has had cellulitis, and MRSA in the past). He has had fever. ( pt c/o headache, neck and shoulder pain, photophobic). SOCIAL HX: Light tobacco smoker (cigarette)- less than 1/2 a pack per day. Occasional alcohol use. History of drug use: marijuana. --15:30 Zofia Galaviz R.N. PROBLEMS: MRSA Infection. Abscess. Back Pain. Hypertension. --15:29 Zofia Galaviz R.N. ADDITIONAL SURGERIES: Bicept tendon. Tibial platoue fx. --15:29 Zofia Galaviz R.N. Interventions ID band on patient. To treatment room. --15:30 Zofia Galaviz R.N. PHYSICAL ASSESSMENT 15:20. Ambulatory to room. GENERAL / NEURO / PSYCH: Alert. Appears in pain. Oriented X 4. RESPIRATORY: Respirations not labored. CVS: Capillary refill less than 2 seconds. GI / : Abdomen nontender. SKIN: Drainage. Skin tenderness present. Swelling present- nose area, left side nares some old open wound. Increased warmth present. Erythema present. --15:31 Zofia Galaviz R.N. NURSING PROGRESS NOTES 15:20. Patient gowned. Head of bed elevated. Reassurance given. Patient identifiers checked. Call light placed in reach. Side rails up. Bed placed in lowest position. Patient ready for evaluation- chart flagged. --15:30 Zofia Galaviz R.N. 15:35 01/15/2017 Bactrim DS (Sulfamethoxazole-TMP DS) PO Tablets 1 tab given. Allergies verified and confirmed 5 rights. --15:45 Zofia Galaviz R.N. DISPOSITION / DISCHARGE 15:40. Condition at departure: unchanged and stable. No learning barriers present. Discharge instructions provided and reviewed with the patient. Reviewed medication(s) (bactrim, vicodin, motrin). Treatments reviewed (warm packs). Reviewed referrals (follow up wit PCP in 2 days). Written instructions provided. The patient was discharged home and unaccompanied at time of discharge. He left the Emergency Department ambulatory and via private vehicle. Patient driving. --15:44 Zofia Galaviz R.N. 15:40 01/15/17. BP: 150/100. HR: 92. RR: 20. O2 saturation: 100%. Temp: deferred. Pain level now: 03/01. --15:44 Zofia aGlaviz R.N. Locked/Released at 01/15/2017 15:46 by Zofia Galaviz R.N.
--- NOTE | 2017-01-15 15:35 | ED ORDER SUMMARY ---
..... Patient: JANNETTE RIZVI OrderSheet [facility] VisitID: [id number] [address] [place] [address] 41y, M Registration Date/Time: 01/15/2017 ORDER SHEET Weight: 108.8 kg (stated) Allergies: No Known Drug Allergy GENERAL ORDERS: MEDICATION ORDERS: Bactrim DS PO (Tablet 800-160 mg) 1 tab (NOW) (15:34 01/15/2017 Taryn Olivo.AWalker-Kirk) (Ack 15:35 DDean R.N.) (15:45 DDean R.N.) IV FLUIDS: ORDER SHEET NOTES: [Electronically signed by Zofia Galaviz R.N. (15:46 01/15/2017)] [Electronically signed by Nini Ponce P.A.-C (16:07 01/15/2017)] [Electronically locked/signed by Zofia Galaviz R.N. (15:46 01/15/2017)]
--- NOTE | 2017-01-15 15:35 | ED CLINICAL REPORT ---
Clinical Report - Physicians/Mid Levels [facility] [address] [place] [address] 01/15/2017 15:17 Patient: JANNETTE RIZVI Time Seen: 15:21 Jan 15 2017. Arrived- By private vehicle. Historian- patient. HISTORY OF PRESENT ILLNESS Chief Complaint: nasal rash. Is still present. (patient reports a rash to his nose for the last 3 days, worsening with pain. Denies fevers or chills. Denies any drainage. Denies any trauma. Patient denies epistaxis. Denies any fevers, cough. patient reports headache from the nose over the last 4 days as well. Patient with history of MRSA. Patient does admit to previous drug use, denies IV drug use.). REVIEW OF SYSTEMS No fever, excessive bruising, cough or chest pain. All systems otherwise negative, except as recorded above. PAST HISTORY Problems: Wound Check. MRSA Infection. Abscess. Back Pain. Hypertension. Additional Surgeries: Bicept tendon. Tibial platoue fx. Medications: aleve last dose 0800. Losartan Potassium Oral (stopped about 2 months ago ). Allergies: No Known Drug Allergy. SOCIAL HISTORY Smoker- current status unknown. Alcohol use. History of drug use: marijuana. ADDITIONAL NOTES The nursing notes have been reviewed. PHYSICAL EXAM Vital Signs: 01/15/2017 15:20 BP: 155/107. HR: 93. RR: 20. O2 saturation: 99%. Temp: 98.2 F. Pain level now: 8/10. Appearance: Alert. Nose: No active bleeding, dried blood or tenderness to palpation/percussion over the sinuses. No nasal foreign body. (external swelling and erythema and warmth of the nose. No palpable mass. No signs of epistaxis. No internal swelling or lesions noted.). Neck: Normal inspection. No meningeal signs or lymphadenopathy. CVS: Normal heart rate and rhythm. Heart sounds normal. Rhythm normal. No cardiac murmur. Respiratory: No respiratory distress. Skin: Skin warm. Mild, warm, erythematous, tender skin rash (b/l nose). Neuro: Oriented X 3. PROGRESS AND PROCEDURES Course of Care: Patient with history of MRSA, sensitive to Bactrim, thus will be started on Bactrim now. Patient otherwise stable. No signs of palpable abscess or mass. Pt drove self here. Patient is stable. Symptoms better. Patient/family counseled. Disposition: Discharged. CLINICAL IMPRESSION Cellulitis. Facial cellulitis (NOSE). INSTRUCTIONS Drink plenty of fluids. (warm packs to area, important to follow up in 2-3 days, call your primary care clinic to establish new pcp within the clinic). Prescription Medications: Hydrocodone/APAP 5mg / 325mg: take 1 orally every 6 hours as needed for pain. Dispense five (5). No refill. Bactrim DS 800 mg / 160 mg: take 1 tablet orally every 12 hours for 10 days. No refill. Substitution is permissible. Follow-up: Follow up with your doctor in two days. (Electronically signed by Nini Ponce P.A.-C 01/15/2017 16:07)
--- NOTE | 2017-01-15 15:35 | ED ORDER SUMMARY ---
..... Patient: JANNETTE RIZVI OrderSheet [facility] VisitID: [id number] [address] [place] [address] 41y, M Registration Date/Time: 01/15/2017 ORDER SHEET Weight: 108.8 kg (stated) Allergies: No Known Drug Allergy GENERAL ORDERS: MEDICATION ORDERS: Bactrim DS PO (Tablet 800-160 mg) 1 tab (NOW) (15:34 01/15/2017 Taryn Olivo.AWalker-Kirk) (Ack 15:35 DDean R.N.) (15:45 DDean R.N.) IV FLUIDS: ORDER SHEET NOTES: [Electronically signed by Zofia Galaviz R.N. (15:46 01/15/2017)] [Electronically signed by Nini Ponce P.A.-C (16:07 01/15/2017)] [Electronically locked/signed by Zofia Galaviz R.N. (15:46 01/15/2017)]
--- NOTE | 2017-01-15 15:35 | ED CLINICAL REPORT ---
Clinical Report - Physicians/Mid Levels [facility] [address] [place] [address] 01/15/2017 15:17 Patient: JANNETTE RIZVI Time Seen: 15:21 Jan 15 2017. Arrived- By private vehicle. Historian- patient. HISTORY OF PRESENT ILLNESS Chief Complaint: nasal rash. Is still present. (patient reports a rash to his nose for the last 3 days, worsening with pain. Denies fevers or chills. Denies any drainage. Denies any trauma. Patient denies epistaxis. Denies any fevers, cough. patient reports headache from the nose over the last 4 days as well. Patient with history of MRSA. Patient does admit to previous drug use, denies IV drug use.). REVIEW OF SYSTEMS No fever, excessive bruising, cough or chest pain. All systems otherwise negative, except as recorded above. PAST HISTORY Problems: Wound Check. MRSA Infection. Abscess. Back Pain. Hypertension. Additional Surgeries: Bicept tendon. Tibial platoue fx. Medications: aleve last dose 0800. Losartan Potassium Oral (stopped about 2 months ago ). Allergies: No Known Drug Allergy. SOCIAL HISTORY Smoker- current status unknown. Alcohol use. History of drug use: marijuana. ADDITIONAL NOTES The nursing notes have been reviewed. PHYSICAL EXAM Vital Signs: 01/15/2017 15:20 BP: 155/107. HR: 93. RR: 20. O2 saturation: 99%. Temp: 98.2 F. Pain level now: 8/10. Appearance: Alert. Nose: No active bleeding, dried blood or tenderness to palpation/percussion over the sinuses. No nasal foreign body. (external swelling and erythema and warmth of the nose. No palpable mass. No signs of epistaxis. No internal swelling or lesions noted.). Neck: Normal inspection. No meningeal signs or lymphadenopathy. CVS: Normal heart rate and rhythm. Heart sounds normal. Rhythm normal. No cardiac murmur. Respiratory: No respiratory distress. Skin: Skin warm. Mild, warm, erythematous, tender skin rash (b/l nose). Neuro: Oriented X 3. PROGRESS AND PROCEDURES Course of Care: Patient with history of MRSA, sensitive to Bactrim, thus will be started on Bactrim now. Patient otherwise stable. No signs of palpable abscess or mass. Pt drove self here. Patient is stable. Symptoms better. Patient/family counseled. Disposition: Discharged. CLINICAL IMPRESSION Cellulitis. Facial cellulitis (NOSE). INSTRUCTIONS Drink plenty of fluids. (warm packs to area, important to follow up in 2-3 days, call your primary care clinic to establish new pcp within the clinic). Prescription Medications: Hydrocodone/APAP 5mg / 325mg: take 1 orally every 6 hours as needed for pain. Dispense five (5). No refill. Bactrim DS 800 mg / 160 mg: take 1 tablet orally every 12 hours for 10 days. No refill. Substitution is permissible. Follow-up: Follow up with your doctor in two days. (Electronically signed by Nini Ponce P.A.-C 01/15/2017 16:07)
--- NOTE | 2017-01-15 16:07 | ED DISCHARGE INSTRUCTIONS ---
Patient: JANNETTE RIZVI General Instructions Located Within [facility] VisitID: [id number] [place] [address] 41y, M Registration Date/Time: 01/15/2017 Cellulitis. Facial cellulitis (NOSE). INSTRUCTIONS Drink plenty of fluids. (warm packs to area, important to follow up in 2-3 days, call your primary care clinic to establish new pcp within the clinic). Prescription Medications: Hydrocodone/APAP 5mg / 325mg: take 1 orally every 6 hours as needed for pain. Dispense five (5). No refill. Bactrim DS 800 mg / 160 mg: take 1 tablet orally every 12 hours for 10 days. No refill. Substitution is permissible. Follow-up: Follow up with your doctor in two days. ADDITIONAL INFORMATION Staph Infection (MRSA) "Staph" is the short name for the common bacteria called "staphylococcus aureus". Staph bacteria are often present on the skin without causing an infection. If it gets under the skin an infection occurs. This causes redness, tenderness, swelling and sometimes fluid drainage. MRSA stands for "Methicillin-Resistant Staph Aureus". Unlike a common staph infection, MRSA bacteria are resistant to the usual antibiotics and harder to treat. Also, MRSA is more toxic than common staph bacteria. It can spread quickly throughout the body and cause a life-threatening illness. MRSA is spread to others by direct physical contact with the bacteria. MRSA can also be transmitted from items contaminated by a person who has the bacteria, such as bandages, towels, bed sheets, or sports equipment. It is not spread through the air. Once you have a MRSA skin infection, you are at risk of having it recur in the future. If MRSA infection is suspected, the doctor may take a wound culture to confirm the diagnosis. Any abscess will be drained. One or sometimes two antibiotics that work against MRSA will be prescribed. Home Care: 1) Take any antibiotics prescribed exactly as directed until they are gone. 2) Follow the same washing procedures as outlined for Household Members below. 3) Keep draining wounds covered with clean, dry bandages. Change dressings as they become soiled. 4) You and those in contact with you should wash their hands frequently with soap and warm water or use an alcohol-based hand automotive dismantler. Do this after each time you change the bandage or touch the wound. 5) Avoid sharing personal items such as towels, washcloths, razors, clothing, or uniforms. Wash soiled sheets, towels or clothes in hot water with laundry detergent. Use an automatic clothes dryer set on high to kill any remaining bacteria. 6) Remove any artificial nails and nail romanian. 7) If you use a gym, wipe down equipment before and after each use. Treatment Of Household Members If you have been diagnosed with possible MRSA infection, those living with you are at higher risk of carrying the bacteria on their skin or in their nose, even if there is no sign of infection. Bacteria must be removed from the skin of all household members (including you) at the same time, so that it is not passed back and forth. Advise them to remove the bacteria as follows: Wash your whole body (scalp to toes) daily for five days with Hibiclens (chlorhexidine). Scrub fingernails with a brush for one minute twice a day. If any skin infections are present (boils, abscess, infected cut) these must be treated by a doctor. Washing alone will not treat a MRSA infection. Clean counter tops and children's toys; do not share personal items such as toothbrush and razors. It is okay to share glasses, plates, utensils. If antibiotic ointment was prescribed use it as directed. Follow Up with your doctor or as advised by our staff. If a wound culture was taken, call as directed in two days to obtain the results. If the culture result is positive for MRSA, tell medical personnel in the future that you were treated for this type of infection. Get Prompt Medical Attention if any of the following occur: -- Increasing redness, swelling or pain -- Red streaks in the skin around the wound -- Weakness or dizziness -- New appearance of pus or drainage from the wound -- New fever over 100.4 F (38.0 C) Facial Cellulitis You have an infection of the skin known as cellulitis. This usually starts with a scrape, cut or insect bite which becomes infected. It may also occur from an infected oil gland (pimple) or hair follicle. This can be a serious condition and must be watched closely to be sure the infection is not spreading. With antibiotic treatment, the size of the red area will gradually shrink in size until the skin returns to normal. This will take 7-10 days. The red area should never increase in size once the antibiotic medicine has been started. Occasionally, an infection will be resistant to one antibiotic and another one will have to be used. Home Care: 1) Take all of the antibiotic medicine exactly as prescribed until it is gone. Be careful not to miss any doses, especially during the first few days. 2) A cool compress (face cloth soaked in cool water) applied to the face may help with the swelling and pain. 3) You may use acetaminophen (Tylenol) or ibuprofen (Motrin, Advil) to control pain, unless another medicine was prescribed. [ NOTE : If you have chronic liver or kidney disease or ever had a stomach ulcer or GI bleeding, talk with your doctor before using these medicines.] (Aspirin should never be used in anyone under 18 years of age who is ill with a fever. It may cause severe liver damage.) Follow Up with your doctor or this facility as directed. Check the infected area daily for the warning signs listed below. Get Prompt Medical Attention if any of the following occur: -- Increasing area of redness, swelling or pain -- Pus or fluid drainage from the skin or the eye -- Fever of 100.5 F (38 C) oral or 101.5 F (38.6 C) rectal for more than two days on antibiotics -- Eyelid swells shut -- Increasing headache or neck pain -- Unusual drowsiness or confusion -- Convulsion (seizure) Hydrocodone Bitartrate, Acetaminophen Oral tablet What is this medicine? ACETAMINOPHEN; HYDROCODONE (a set a MARLENI varun fen; bora droe KOE done) is a pain reliever. It is used to treat mild to moderate pain. How should I use this medicine? Take this medicine by mouth. Swallow it with a full glass of water. Follow the directions on the prescription label. If the medicine upsets your stomach, take the medicine with food or milk. Do not take more than you are told to take. Talk to your senior product designer regarding the use of this medicine in children. This medicine is not approved for use in children. What side effects may I notice from receiving this medicine? Side effects that you should report to your doctor or health healthcare advisory services manager as soon as possible: allergic reactions like skin rash, itching or hives, swelling of the face, lips, or tongue breathing problems confusion feeling faint or lightheaded, falls stomach pain yellowing of the eyes or skin Side effects that usually do not require medical attention (report to your doctor or health healthcare advisory services manager if they continue or are bothersome): nausea, vomiting stomach upset What may interact with this medicine? alcohol antihistamines isoniazid medicines for depression, anxiety, or psychotic disturbances medicines for sleep muscle relaxants naltrexone narcotic medicines (opiates) for pain phenobarbital ritonavir tramadol What if I miss a dose? If you miss a dose, take it as soon as you can. If it is almost time for your next dose, take only that dose. Do not take double or extra doses. Where should I keep my medicine? Keep out of the reach of children. This medicine can be abused. Keep your medicine in a safe place to protect it from theft. Do not share this medicine with anyone. Selling or giving away this medicine is dangerous and against the law. Store at room temperature between 15 and 30 degrees C (59 and 86 degrees F). Protect from light. Keep container tightly closed. Throw away any unused medicine after the expiration date. Discard unused medicine and used packaging carefully. Pets and children can be harmed if they find used or lost packages. What should I tell my health care provider before I take this medicine? They need to know if you have any of these conditions: brain tumor Crohn's disease, inflammatory bowel disease, or ulcerative colitis drink more than 3 alcohol-containing drinks per day drug abuse or addiction head injury heart or circulation problems kidney disease or problems going to the bathroom liver disease lung disease, asthma, or breathing problems an unusual or allergic reaction to acetaminophen, hydrocodone, other opioid analgesics, other medicines, foods, dyes, or preservatives or trying to get breast-feeding What should I watch for while using this medicine? Tell your doctor or health healthcare advisory services manager if your pain does not go away, if it gets worse, or if you have new or a different type of pain. You may develop tolerance to the medicine. Tolerance means that you will need a higher dose of the medicine for pain relief. Tolerance is normal and is expected if you take the medicine for a long time. Do not suddenly stop taking your medicine because you may develop a severe reaction. Your body becomes used to the medicine. This does NOT mean you are addicted. Addiction is a behavior related to getting and using a drug for a non-medical reason. If you have pain, you have a medical reason to take pain medicine. Your doctor will tell you how much medicine to take. If your doctor wants you to stop the medicine, the dose will be slowly lowered over time to avoid any side effects. You may get drowsy or dizzy when you first start taking the medicine or change doses. Do not drive, use machinery, or do anything that may be dangerous until you know how the medicine affects you. Stand or sit up slowly. There are different types of narcotic medicines (opiates) for pain. If you take more than one type at the same time, you may have more side effects. Give your health care provider a list of all medicines you use. Your doctor will tell you how much medicine to take. Do not take more medicine than directed. Call emergency for help if you have problems breathing. The medicine will cause constipation. Try to have a bowel movement at least every 2 to 3 days. If you do not have a bowel movement for 3 days, call your doctor or health healthcare advisory services manager. Too much acetaminophen can be very dangerous. Do not take Tylenol (acetaminophen) or medicines that contain acetaminophen with this medicine. Many non-prescription medicines contain acetaminophen. Always read the labels carefully. Sulfamethoxazole, Trimethoprim Oral tablet What is this medicine? SULFAMETHOXAZOLE; TRIMETHOPRIM or SMX-TMP (suhl fuh meth OK javier zohl; trye METH oh prim) is a combination of a sulfonamide antibiotic and a second antibiotic, trimethoprim. It is used to treat or prevent certain kinds of bacterial infections. It will not work for colds, flu, or other viral infections. How should I use this medicine? Take this medicine by mouth with a full glass of water. Follow the directions on the prescription label. Take your medicine at regular intervals. Do not take it more often than directed. Do not skip doses or stop your medicine early. Talk to your senior product designer regarding the use of this medicine in children. Special care may be needed. This medicine has been used in children as young as 2 months of age. What side effects may I notice from receiving this medicine? Side effects that you should report to your doctor or health healthcare advisory services manager as soon as possible: allergic reactions like skin rash or hives, swelling of the face, lips, or tongue breathing problems fever or chills, sore throat irregular heartbeat, chest pain joint or muscle pain pain or difficulty passing urine red pinpoint spots on skin redness, blistering, peeling or loosening of the skin, including inside the mouth unusual bleeding or bruising unusually weak or tired yellowing of the eyes or skin Side effects that usually do not require medical attention (report to your doctor or health healthcare advisory services manager if they continue or are bothersome): diarrhea dizziness headache loss of appetite nausea, vomiting nervousness What may interact with this medicine? Do not take this medicine with any of the following medications: aminobenzoate potassium dofetilide metronidazole This medicine may also interact with the following medications: DAVID inhibitors like benazepril, enalapril, lisinopril, and ramipril cyclosporine digoxin diuretics indomethacin medicines for diabetes methenamine methotrexate phenytoin potassium supplements pyrimethamine sulfinpyrazone tricyclic antidepressants warfarin What if I miss a dose? If you miss a dose, take it as soon as you can. If it is almost time for your next dose, take only that dose. Do not take double or extra doses. Where should I keep my medicine? Keep out of the reach of children. Store at room temperature between 20 to 25 degrees C (68 to 77 degrees F). Protect from light. Throw away any unused medicine after the expiration date. What should I tell my health care provider before I take this medicine? They need to know if you have any of these conditions: anemia asthma being treated with anticonvulsants if you frequently drink alcohol containing drinks kidney disease liver disease low level of folic acid or [id number] dehydrogenase poor nutrition or malabsorption porphyria severe allergies thyroid disorder an unusual or allergic reaction to sulfamethoxazole, trimethoprim, sulfa drugs, other medicines, foods, dyes, or preservatives or trying to get breast-feeding What should I watch for while using this medicine? Tell your doctor or health healthcare advisory services manager if your symptoms do not improve. Drink several glasses of water a day to reduce the risk of kidney problems. Do not treat diarrhea with over the counter products. Contact your doctor if you have diarrhea that lasts more than 2 days or if it is severe and watery. This medicine can make you more sensitive to the sun. Keep out of the sun. If you cannot avoid being in the sun, wear protective clothing and use a sunscreen. Do not use sun lamps or tanning beds/booths. You have been given the following additional information: MRSA Skin Infection, Suspected Or Confirmed Cellulitis, Facial Hydrocodone Bitartrate, Acetaminophen Oral tablet Sulfamethoxazole, Trimethoprim Oral tablet (Electronically signed by Nini Ponce P.A.-C 01/15/2017 16:07)
--- NOTE | 2017-01-15 16:07 | ED MED RECONCILIATION SUMMARY ---
Patient: JANNETTE RIZVI Medication Reconciliation Report [facility] VisitID: [id number] [address] [place] [address] 41y, M Registration Date/Time: 01/15/2017 Weight: 108.8 kg Height/Length: 71 in. BMI: 33.5 ALLERGIES: No Known Drug Allergy The patient's Home Medications are listed below: THE FOLLOWING MEDICATIONS NEED TO BE RECONCILED: aleve last dose 0800 Losartan Potassium Oral, stopped about 2 months ago The source(s) of the original Home Medication information: Not obtained. The following Medications were given to the patient in the Emergency Department: Bactrim DS [PO] PO 1 tab, administered: 01/15/2017 3:35:00 PM The following Medications were prescribed to the patient: Hydrocodone/APAP 5mg / 325mg: take 1 orally every 6 hours as needed for pain. Dispense five (5). No refill. -- Nini Ponce, P.AWalker-Kirk Bactrim DS 800 mg / 160 mg: take 1 tablet orally every 12 hours for 10 days. No refill. Substitution is permissible. -- Nini Ponce P.AWalker-Kirk
--- NOTE | 2017-01-15 16:07 | ED MED RECONCILIATION SUMMARY ---
Patient: JANNETTE RIZVI Medication Reconciliation Report [facility] VisitID: [id number] [address] [place] [address] 41y, M Registration Date/Time: 01/15/2017 Weight: 108.8 kg Height/Length: 71 in. BMI: 33.5 ALLERGIES: No Known Drug Allergy The patient's Home Medications are listed below: THE FOLLOWING MEDICATIONS NEED TO BE RECONCILED: aleve last dose 0800 Losartan Potassium Oral, stopped about 2 months ago The source(s) of the original Home Medication information: Not obtained. The following Medications were given to the patient in the Emergency Department: Bactrim DS [PO] PO 1 tab, administered: 01/15/2017 3:35:00 PM The following Medications were prescribed to the patient: Hydrocodone/APAP 5mg / 325mg: take 1 orally every 6 hours as needed for pain. Dispense five (5). No refill. -- Nini Ponce, P.AWalker-Kirk Bactrim DS 800 mg / 160 mg: take 1 tablet orally every 12 hours for 10 days. No refill. Substitution is permissible. -- Nini Ponce P.AWalker-Kirk
--- NOTE | 2017-01-15 16:07 | ED MAR SUMMARY ---
..... Medication Administration Record [facility] [address] [place] [address] Patient: JANNETTE RIZVI Visit ID: [id number] 41y, M Weight: 108.8 kg Height/Length: 71 in BMI: 33.5 ALLERGIES: No Known Drug Allergy Given 15:35 01/15/2017 Guillaume, Zofia RMarlon. Medication Administered: BACTRIM DS [PO] (SULFAMETHOXAZOLE-TMP DS), Dose: 1 tab Tablets PO. Medication Ordered: Bactrim DS PO (Tablet 800-160 mg) 1 tab (NOW).
--- NOTE | 2017-01-15 16:07 | ED MAR SUMMARY ---
..... Medication Administration Record [facility] [address] [place] [address] Patient: JANNETTE RIZVI Visit ID: [id number] 41y, M Weight: 108.8 kg Height/Length: 71 in BMI: 33.5 ALLERGIES: No Known Drug Allergy Given 15:35 01/15/2017 Guillaume, Zofia RMarlon. Medication Administered: BACTRIM DS [PO] (SULFAMETHOXAZOLE-TMP DS), Dose: 1 tab Tablets PO. Medication Ordered: Bactrim DS PO (Tablet 800-160 mg) 1 tab (NOW).
== END 2017-01-15 15:40 | disposition home or self-care (01) ==
LOC: ED SRH 15:16
DX: L03.211 Cellulitis of face (principal); Z86.14 Personal history of Methicillin resistant Staphylococcus aureus infection; I10 Essential (primary) hypertension